=== PATIENT | female | born 1970 | race Hispanic/Latino ===

== ENCOUNTER 2023-04-03 22:02 | Emergency (ER) | payer OTHER ==
--- OUTSIDE RECORDS SUMMARY | 2023-04-03 22:05 | XMS REPORT | Continuity of Care Document ---
:1970 Author Organization [facility] t Address [address] [place] [address] [place] [address] Care Team Providers Name Role Phone DR FATOU KIMBLE Attending Clinician Unavailable DR FATOU KIMBLE Admitting Clinician Unavailable Problems This patient has no known problems. Allergies, Adverse Reactions, Alerts This patient has no known allergies or adverse reactions. Medications This patient has no known medications. Procedures This patient has no known procedures. Encounters Start End Encounter Admission Attending Care Care Encounter Source Date/Time Date/Time Type Type Clinicians Facility Department ID 2023-01-04 2023-01-04 Outpatient SFA SFA [id number] Miguel A 10:21:25 10:21:25 [id number] [facility] 2022-10-03 2022-10-03 Outpatient SFA SFA [id number] Miguel A 09:35:17 09:35:17 [id number] [facility] 2022-08-23 2022-08-23 Outpatient SFA SFA [id number] Miguel A 08:42:04 08:42:04 [id number] [facility] 2022-08-12 2022-08-12 Outpatient SFA SFA [id number] Miguel A 14:16:04 14:16:04 [id number] [facility] 2022-08-11 2022-08-11 Outpatient SFA SFA [id number] Miguel A 08:41:23 08:41:23 [id number] [place] 2017-04-30 2017-04-30 Emergency E ETHAN KIMBLE [facility] [id number] [address] [place] 10:36:00 11:27:00 [facility] Results Test Description Test Time Test Comments Results Result Comments Source HEMOGLOBIN A1c 2023-01-06 02:16:13 Test Item Value Reference Range Interpretation Comme nts HEMOGLOBIN A1c (test 7.7 % 4.2-5.6 H AMERI CAN DIABETES ASSOCIATION GUIDELINES code = 37643) FOR HGB A1C: P REDIABETES/INCREASED RISK . . . . . . . 5.7-6.4 % DIAGNOSIS OF DIABETES . . . . . . . . . >=6 .5% WITH CONFIRMATION OR APPROPRIATE SYM PTOMS NOTE: ASSAY MAY BE AFFECTED BY HEM OGLOBINOPATHIES (SICKLE CELL ANEMIA, S-C DIS EASE, OTHERS) OR ARTIFICIALLY LOWERED BY DECR EASED RED CELL SURVIVAL (HEMOLYTIC ANEM IAS, BLOOD LOSS, ETC.). CONSIDER ALTERN ATE TESTING OR LABORATORY CONSULTATION. * [facility] has important pathology staff changes e ffective 11/23/2022. New pathology staff will provide uninterrupted, excellent patie nt care and clinical consultation. S ee URL: [email or web address]. UNLESS OTHERWISE INDIC ATED, ALL TESTING PERFORMED AT [facility] [employer] [address] [place] [address] CUT OFF SAWYER: ELY GARZON M.D. CLIA NUMBER [id number] [place]. [id number] HEMOGLOBIN [id number] 02:45:45 Test Item Value Reference Range Interpretation Comments HEMOGLOBIN A1c (test 7.4 % 4.2-5.6 H AMERIC AN DIABETES code = 44059) ASSOCIATION IDELINES FOR HGB A1C: PREDIABETES/INC REASED RISK . . . . . . . 5.7 -6.4% DIAGNOSIS OF DI ABETES . . . . . . . . . >=6 .5% WITH CONFIRMATION OR APPROPRIATE SYMPTOMS NOTE: ASSAY MAY BE AFFECTED BY HEMOGLOBINOPATH IES (SICKLE CELL ANEMIA, S- C DISEASE, OTHERS) OR ANNETTE FICIALLY LOWERED BY DECR EASED RED CELL SURVIVAL ( HEMOLYTIC ANEMIAS, BLOOD LOSS, ETC.). CONSIDER ALTERN ATE TESTING OR LABORATORY C ONSULTATION. UNLESS OTHERWIS E INDICATED, ALL TESTING PER [facility], [facility]. [address] [place] [phone] LABORATORY DIRE CTOR: KAYLA KUHN M.D. CLIA NUMBER [id number] [place]. [id number] HEMOGLOBIN [id number] 04:28:38 Test Item Value Reference Range Interpretation Comments HEMOGLOBIN A1c (test 7.8 % 4.2-5.6 H AMERIC AN DIABETES code = 68211) ASSOCIATION IDELINES FOR HGB A1C: PREDIABETES/INC REASED RISK . . . . . . . 5.7 -6.4% DIAGNOSIS OF DI ABETES . . . . . . . . . >=6 .5% WITH CONFIRMATION OR APPROPRIATE SYMPTOMS NOTE: ASSAY MAY BE AFFECTED BY HEMOGLOBINOPATH IES (SICKLE CELL ANEMIA, S- C DISEASE, OTHERS) OR ANNETTE FICIALLY LOWERED BY DECR EASED RED CELL SURVIVAL ( HEMOLYTIC ANEMIAS, BLOOD LOSS, ETC.). CONSIDER ALTERN ATE TESTING OR LABORATORY C ONSULTATION. UNLESS OTHERWIS E INDICATED, ALL TESTING PER [employer] [place]. [address] [place], [place] [id number] LABORATORY DIRE CTOR: KAYLA KUHN M.D. CLIA NUMBER [id number] [place]. [id number] HEMOGLOBIN [id number] 04:29:36 Test Item Value Reference Range Interpretation Comments HEMOGLOBIN A1c (test 8.4 % 4.2-5.6 H AMERIC AN DIABETES code = 51808) ASSOCIATION IDELINES FOR HGB A1C: PREDIABETES/INC REASED RISK . . . . . . . 5.7 -6.4% DIAGNOSIS OF DI ABETES . . . . . . . . . >=6 .5% WITH CONFIRMATION OR APPROPRIATE SYMPTOMS NOTE: ASSAY MAY BE AFFECTED BY HEMOGLOBINOPATH IES (SICKLE CELL ANEMIA, S- C DISEASE, OTHERS) OR ANNETTE FICIALLY LOWERED BY DECR EASED RED CELL SURVIVAL ( HEMOLYTIC ANEMIAS, BLOOD LOSS, ETC.). CONSIDER ALTERN ATE TESTING OR LABORATORY C ONSULTATION. UNLESS OTHERWIS E INDICATED, ALL TESTING PER [employer] [place]. [address] [place] [address] LABORATORY DIRE CTOR: KAYLA KUHN M.D. CLIA NUMBER [id number] [place]. [id number] LIPID [id number] 01:58:18 Test Item Value Reference Range Interpretation Comments CHOLESTEROL (test 290 MG/DL <200 H code = 2210) TRIGLYCERIDES (test 229 MG/DL <150 H code = 2232) HDL CHOLESTEROL (test 54 MG/DL >39 code = 2220) CALC LDL CHOL (test 194 MG/DL <100 H NOTE: C ALCULATED LDL code = 2237) IS BASED ON VARGAS-TRAN METHOD WHICHINCLUDES ADJUSTABLE TRIGLYCERIDE:VL DL CHOLESTEROL RAT IO.THIS FACTOR VARIES B Y MEASURED TRIGLY CERIDE AND NON-HDLCHOL ESTEROL CONCENTRATIONS WITH INCREASED CALCU LATED LDL SEENIN HIGH ER TRIGLYCERIDE OR LOWER NON-HDL SPECIME NS. FOR MOREINFORMATION , SEE CLIENT ANNOUNCE MENT AT [email or web address] [email or web address] RATIO LDL/HDL 3.59 RATIO <3.22 H (test code = 2238) COMPREHENSIVE METABOLIC [id number] 01:58:18 Test Item Value Reference Range Interpretation Comments GLUCOSE (test code = 297 MG/DL 70-99 H 2216) BUN (test code = 12 MG/DL 6-20 2207) CREATININE (test 0.51 MG/DL 0.60-1.30 L code = 221) eGFR (2020 CKD-EPI) 114 >60 (test code = 32894) ML/MIN/1.73 CALC BUN/CREAT (test 24 RATIO 6-28 code = 2235) SODIUM (test code = 141 MEQ/L 159-999 5190) POTASSIUM (test code 4.2 MEQ/L 3.5-5.4 = 2227) CHLORIDE (test code 103 MEQ/L 95-107 = 2214) CARBON DIOXIDE (test 24 MEQ/L 19-31 code = 2206) CALCIUM (test code = 9.8 MG/DL 8.5-10.5 2208) PROTEIN, TOTAL (test 6.9 G/DL 6.1-8.3 code = 222) ALBUMIN (test code = 4.7 G/DL 3.5-5.2 2200) CALC GLOBULIN (test 2.2 G/DL 1.9-3.7 code = 2240) CALC A/G RATIO (test 2.1 RATIO 1.0-2.6 code = 2234) BILIRUBIN, TOTAL 1.2 MG/DL See_Comment [Automated message] (test code = 2207) The syste m which generated this result transmitted ref erence range: <=1.2. T he reference range was not used to int erpret this result as normal/abnormal . ALKALINE PHOSPHATASE 100 U/L 40-128 (test code = 2203) AST (test code = 15 U/L 9-40 2218) ALT (test code = 18 U/L 5-40 UNLESS OTH ERWISE 2219) INDICATED, ALL TESTING PERFORM ED [facility], [facility]. [address] [place] [address] [facility] DIRECTOR: KAYLA KUHN M.D. CLIA NUMBER [id number] [place] O. [id number] HEMOGLOBIN [id number] 04:29:13 Test Item Value Reference Range Interpretation Comments HEMOGLOBIN A1c (test 9.4 % 4.2-5.6 H AMERIC AN DIABETES code = 64110) ASSOCIATION IDELINES FOR HGB A1C: PREDIABETES/INC REASED RISK . . . . . . . 5.7 -6.4% DIAGNOSIS OF DI ABETES . . . . . . . . . >=6 .5% WITH CONFIRMATION OR APPROPRIATE SYMPTOMS NOTE: ASSAY MAY BE AFFECTED BY HEMOGLOBINOPATH IES (SICKLE CELL ANEMIA, S- C DISEASE, OTHERS) OR ANNETTE FICIALLY LOWERED BY DECR EASED RED CELL SURVIVAL ( HEMOLYTIC ANEMIAS, BLOOD LOSS, ETC.). CONSIDER ALTERN ATE TESTING OR LABORATORY C ONSULTATION.
[2023-04-03 23:25] LABS: Absolute Lymphocytes (CBC) 0.7 K/uL (0.7-4.9); Hematocrit 50.7 % (36.0-45.0); Lymphocytes % 7.2 % (15.3-44.8); MCV 88.5 fL (80-100); MPV 9.4 fL (7.6-11.3); RBC Red Blood Cell Count 5.72 M/uL (3.86-4.86)
[2023-04-03] MEDS ORDERED: FAMOTIDINE 20 MG/2 ML VIAL IV ONE (23:35)
[2023-04-03] MEDS ORDERED: NA CHLORIDE 0.9% 1,000 ML ONE (23:35)
[2023-04-03] MEDS ORDERED: ONDANSETRON 4 MG/2 ML VIAL ONE (23:35)
[2023-04-03 23:44] LABS: Albumin 3.9 g/dL (3.4-5.0); Bilirubin Direct 0.3 mg/dL (0-0.2); Bilirubin Indirect, Calculated 1.5 mg/dL (0.2-0.8); Bilirubin Total 1.8 mg/dL (0.2-1.0); Magnesium 1.9 mg/dL (1.6-2.4); Potassium 3.5 mEq/L (3.5-5.1); Protein, Total 7.7 g/dL (6.4-8.2); Troponin High Sensitivity 12.4 pg/mL (<58.9)
[2023-04-04 01:16] LABS: Blood Morphology Comment NOT SEEN (NOT SEEN); Platelet Estimate ADEQ
[2023-04-04 02:47] LABS: Urine Bacteria None Seen /HPF (<20); Urine RBC None Seen /HPF (None Seen)
--- NOTE | 2023-04-04 03:06 | EDPHYS ---
Physician Documentation [facility] Name: Radha Pablo Age: 52 yrs Sex: Female : 1970 Arrival Date: 04/03/2023 Time: 22:02 Bed 18 Private MD: ED Physician Uche Seth HPI: 04/03 22:45 This 52 yrs old Female presents to ER via Ambulatory with complaints of High cp Blood Sugar, Epigastric Pain. 22:45 The patient or guardian reports hyperglycemia. cp 22:45 Associated signs and symptoms: Pertinent positives: nausea, vomiting, epigastric pain cp since Monday, Pertinent negatives: chest pain, fever, diarrhea. Current symptoms: In the emergency department the patient's symptoms are unchanged from the initial presentation, despite home interventions. Historical: - Allergies: 22:27 No Known Allergies; cm10 - PMHx: 22:27 Diabetes mellitus; Hypertensive disorder; cm10 22:27 high cholesterol; cm10 - Immunization history:: Adult Immunizations unknown. - Social history:: Smoking status: Patient denies any tobacco usage or history of. ROS: 22:50 Eyes: Negative for injury, pain, redness, and discharge. cp 22:50 Constitutional: Positive for poor PO intake, Negative for body aches, chills, fever. 22:50 ENT: Negative for drainage from ear(s), ear pain, sore throat, difficulty swallowing, cp difficulty handling secretions. 22:50 Cardiovascular: Negative for chest pain, edema. 22:50 Respiratory: Negative for cough, shortness of breath, wheezing. 22:50 Abdomen/GI: Positive for abdominal pain, nausea and vomiting, anorexia, Negative for diarrhea, constipation, hematemesis, black/tarry stool, rectal bleeding. 22:50 Back: Negative for radiated pain. 22:50 Neuro: Negative for altered mental status, dizziness, headache, weakness. 22:50 All other systems are negative. Exam: 22:45 ECG was reviewed by the Attending Physician. cp 22:55 Constitutional: The patient appears in no acute distress, alert, awake, cp non-diaphoretic, non-toxic, well developed, well nourished, uncomfortable. 22:55 Head/Face: Normocephalic, atraumatic. cp 22:55 Eyes: Periorbital structures: appear normal, Conjunctiva: normal, no exudate, no injection, Sclera: no appreciated abnormality, Lids and lashes: appear normal, bilaterally. 22:55 ENT: External ear(s): are unremarkable, Nose: is normal, Mouth: Lips: moist, Oral mucosa: pink and intact, moist, Posterior pharynx: is normal, airway is patent, no erythema, no exudate. 22:55 Neck: ROM/movement: is normal, is supple, without pain, no range of motions limitations, no meningismus. 22:55 Chest/axilla: Inspection: normal. 22:55 Cardiovascular: Rate: tachycardic, Rhythm: regular. 22:55 Respiratory: the patient does not display signs of respiratory distress, Respirations: normal, no use of accessory muscles, no retractions, labored breathing, is not present, Breath sounds: are clear throughout, no decreased breath sounds, no stridor, no wheezing. 22:55 Abdomen/GI: Inspection: abdomen appears normal, Bowel sounds: active, all quadrants, Palpation: soft, in all quadrants, moderate abdominal tenderness, in the epigastric area and left upper quadrant, rebound tenderness, is not appreciated, involuntary guarding, is not appreciated. 22:55 Back: CVA tenderness, is absent. 22:55 Neuro: Orientation: to person, place \T\ time. Mentation: is normal, Motor: moves all fours, strength is normal, Sensation: is normal. Vital Signs: 22:25 BP 136 / 102; Pulse 105; Resp 16; Temp 98.6(TE); Pulse Ox 97% on R/A; Weight 78.93 kg; cm10 Height 5 ft. 1 in. ; Pain 8/10; 23:29 BP 123 / 79; Pulse 87; Resp 21; Pulse Ox 97% on R/A; vc1 07/11 00:36 BP 136 / 73; Pulse 86; Resp 16; Pulse Ox 98% on R/A; pf1 01:29 BP 137 / 79; Pulse 90; Resp 16; Pulse Ox 97% on R/A; Pain 0/10; pf1 02:30 BP 142 / 82; Pulse 89; Resp 16; Pulse Ox 97% ; Pain 2/10; pf1 03:30 BP 131 / 82; Pulse 85; Resp 16; Temp 98.2; Pulse Ox 98% on R/A; Pain 4/; pf1 04/03 22:25 Body Mass Index 32.88 (78.93 kg, 154.94 cm) cm10 04/03 22:25 Pain Scale: Adult cm10 01:29 Pain Scale: Adult pf1 02:30 Pain Scale: Adult pf1 03:30 Pain Scale: Adult pf1 MDM: 04/03 22:39 Patient medically screened. cp 23:00 Differential diagnosis: DKA, hyperglycemia, cholelithiasis, pancreatitis, acute ND, cp choledocholithiasis, cholecystitis. 04/04 03:00 Data reviewed: vital signs, nurses notes. cp 03:00 Consideration of Admission/Observation Patient was admitted/placed on observation. I cp considered the following discharge prescriptions or medication management in the emergency department Medications were administered in the Emergency Department. See MAR. Care significantly affected by the following chronic conditions: Diabetes, Hypertension. Counseling: I had a detailed discussion with the patient and/or guardian regarding: the historical points, exam findings, and any diagnostic results supporting the discharge/admit diagnosis, lab results, radiology results, the need for outpatient follow up, a general surgeon. Response to treatment: the patient's symptoms have markedly improved after treatment, and as a result, I will discharge patient. Special discussion: Based on the patient's Hx, exam, and Dx evaluation, there is no indication for emergent surgery or inpatient Tx. It is understood by the patient/guardian that if the Sx's persist or worsen they need to return immediately for re-evaluation. 04/03 22:41 Order name: Glucose, Ancillary Testing; Complete Time: 22:46 EDMS 04/03 22:48 Order name: Basic Metabolic Panel; Complete Time: 01:45 cp 04/04 01:45 Interpretation: Normal except: GLUC 197. cp 04/03 22:48 Order name: CBC with Diff; Complete Time: 01:45 cp 04/04 01:45 Interpretation: Normal except: RBC 5.72; HGB 17.0; HCT 50.7; RONALD% 85.3; LYM% 7.2. cp 04/03 22:48 Order name: LFT's; Complete Time: 01:45 cp 04/04 01:46 Interpretation: Normal except: BILIT 1.8; BILID 0.3; IBILI, CALC 1.5; GLOB 3.8; A/G 1.0.cp 04/03 22:48 Order name: Magnesium; Complete Time: 01:45 cp 04/03 22:48 Order name: Troponin HS; Complete Time: 01:45 cp 04/03 22:48 Order name: Lipase; Complete Time: 01:45 cp 04/03 23:31 Order name: Manual Differential; Complete Time: 01:45 EDMS 04/04 01:46 Interpretation: Normal except: BANDS [F] 15; LYM 7; EOS 4. 04/04 01:51 Order name: Urine Microscopic Only; Complete Time: 02:58 cp 04/04 02:58 Interpretation: Reviewed. 04/03 22:48 Order name: XRAY Chest (1 view) 04/03 22:48 Order name: US Abdomen Limited 04/03 23:39 Order name: CT Abd/Pelvis - IV Contrast Only 04/03 22:48 Order name: EKG; Complete Time: 22:49 cp 04/03 22:48 Order name: Cardiac monitoring; Complete Time: 23:01 04/03 22:48 Order name: EKG - Nurse/Tech; Complete Time: 22:55 cp 04/03 22:48 Order name: IV Saline Lock; Complete Time: 23:14 cp 04/03 22:48 Order name: Labs collected and sent; Complete Time: 23:14 04/03 22:48 Order name: O2 Per Protocol; Complete Time: 23:14 cp 04/03 22:48 Order name: O2 Sat Monitoring; Complete Time: 23:14 04/04 01:51 Order name: PO challenge cp EC/10 22:45 Rate is 99 beats/min. Rhythm is regular. MN interval is normal. QRS interval is normal. cp QT interval is normal. T waves are Inverted in lead aVR. Interpreted by me. Reviewed by me. Administered Medications: 23:30 Drug: Ondansetron IVP 4 mg Route: IVP; Site: right antecubital; [facility] 04/04 00:30 Follow up: Response: No adverse reaction; Marked relief of symptoms [facility] 04/03 23:30 Drug: Famotidine IVP 20 mg Route: IVP; Site: right antecubital; 1 04/04 00:35 Follow up: Response: No adverse reaction; Marked relief of symptoms [facility] 04/03 23:30 Drug: NS 0.9% IV 1000 ml Route: IV; Rate: 1 bolus; Site: right antecubital; pf1 04/04 00:35 Follow up: Response: No adverse reaction; Marked relief of symptoms; IV Status: pf1 Completed infusion; IV Intake: 1000ml 03:20 Drug: Rocephin IV 1 grams Route: IV; Rate: calculated rate; Site: right antecubital; pf1 03:25 Follow up: Response: No adverse reaction; Marked relief of symptoms; IV Status: pf1 Completed infusion; IV Intake: 10ml 03:20 Drug: Ondansetron IVP 4 mg Route: IVP; Site: right antecubital; pf1 04:20 Follow up: Response: No adverse reaction; Marked relief of symptoms; Pain is decreased; pf1 RASS: Alert and Calm (0) 03:20 Drug: morphine IVP or IV 4 mg Route: IVP; Infused Over: 4 mins; Site: right antecubital;pf1 04:20 Follow up: Response: No adverse reaction; Marked relief of symptoms; Pain is decreased; pf1 RASS: Alert and Calm (0) Disposition: 04/05 02:13 Co-signature as Attending Physician, Uche Seth MD I agree with the assessment sp4 and plan of care. I reviewed the patient's care provided by the Advanced Practice Provider and agree with the diagnosis and treatment plan. Disposition Summary: 04/04/23 03:05 Discharge Ordered Location: Home cp Problem: new cp Symptoms: have improved cp Condition: Stable cp Diagnosis - Other cholelithiasis without obstruction cp - Other specified diabetes mellitus with hyperglycemia cp Followup: cp - With: Bob Steele MD - When: 1 - 2 days - Reason: cholelithiasis Discharge Instructions: - Discharge Summary Sheet cp - Hyperglycemia cp - Cholelithiasis cp - Blood Glucose Monitoring, Adult cp Forms: - Medication Reconciliation Form cp - Thank You Letter cp - Antibiotic Education cp - Prescription Opioid Use cp - Patient Portal Instructions.htm cp Prescriptions: - Pepcid 20 mg Oral Tablet - take 1 tablet by ORAL route every 12 hours for 10 days; 20 tablet; Refills: 0, cp Product Selection Permitted - Zofran 4 mg Oral Tablet - take 1 tablet by ORAL route every 12 hours As needed; 20 tablet; Refills: 0, cp Product Selection Permitted - Cipro 500 mg Oral Tablet - take 1 tablet by ORAL route every 12 hours for 7 days; 14 tablet; Refills: 0, cp Product Selection Permitted - dicyclomine 20 mg Oral Tablet - take 1 tablet by ORAL route 4 times per day; 30 tablet; Refills: 0, Product cp Selection Permitted Signatures: Dispatcher [employer] EDMS Enrico Jeffers PA PA cp Finley, Pamala, RN RN pf1 Uche Seth MD MD sp4 Suzan Steele RN RN cm10 Corrections: (The following items were deleted from the chart) 04/04 22:41 21:55 Constitutional: Positive for poor PO intake, Negative for body aches, chills, cp fever, cp 22:41 21:55 Eyes: Negative for injury, pain, redness, and discharge, cp cp
--- NOTE | 2023-04-04 03:06 | ER ---
Nurse's Notes [facility] Name: Radha Pablo Age: 52 yrs Sex: Female : 1970 Arrival Date: 04/03/2023 Time: 22:02 Bed 18 Private MD: Diagnosis: Other cholelithiasis without obstruction;Other specified diabetes mellitus with hyperglycemia Presentation: 04/03 22:25 Chief complaint: Patient states: epigastric pain, high blood and vomiting onset Monday. cm10 Pt also states that her blood sugar has been elevated. Coronavirus screen: Vaccine status: Patient reports being unvaccinated. Ebola Screen: Patient denies travel to an Ebola-affected area in the 21 days before illness onset. No symptoms or risks identified at this time. Initial Sepsis Screen: Does the patient meet any 2 criteria? No. Patient's initial sepsis screen is negative. Does the patient have a suspected source of infection? No. Patient's initial sepsis screen is negative. Risk Assessment: Do you want to hurt yourself or someone else? Patient reports no desire to harm self or others. Onset of symptoms was April 02, 2023. 22:25 Method Of Arrival: Ambulatory cm10 22:25 Acuity: BARBARA 3 cm10 Historical: - Allergies: 22:27 No Known Allergies; cm10 - PMHx: 22:27 Diabetes mellitus; Hypertensive disorder; cm10 22:27 high cholesterol; cm10 - Immunization history:: Adult Immunizations unknown. - Social history:: Smoking status: Patient denies any tobacco usage or history of. Screenin:30 [facility] ED Fall Risk Assessment (Adult) History of falling in the last 3 months, pf1 including since admission No falls in past 3 months (0 pts) Confusion or Disorientation No (0 pts) Intoxicated or Sedated No (0 pts) Impaired Gait No (0 pts) Mobility Assist Device Used No (0 pt) Altered Elimination No (0 pt) Score/Fall Risk Level 0 - 2 = Low Risk Oriented to surroundings, Maintained a safe environment, Educated pt \T\ family on fall prevention, incl call for assistance when getting out of bed, Assessed \T\ reinforced patient's understanding of fall precautions, Provided non-skid footwear, Hourly rounding (assess needs \T\ fall precautionary measures) done, Used ambulatory aids as needed (educated on \T\ assisted with), Used gait belt as appropriate. 23:28 Abuse screen: Denies threats or abuse. Nutritional screening: No deficits noted. vc1 Tuberculosis screening: No symptoms or risk factors identified. Assessment: 22:30 General: Appears in no apparent distress. uncomfortable, well groomed, well developed, pf1 Behavior is calm, cooperative, appropriate for age, quiet, Patient C/O elevated BS today. 22:30 Pain: Complains of pain in epigastric pain. Neuro: No deficits noted. Level of pf1 Consciousness is awake, alert, obeys commands, Oriented to person, place, time, situation. Cardiovascular: No deficits noted. Capillary refill < 3 seconds Patient's skin is warm and dry. Respiratory: No deficits noted. Airway is patent Respiratory effort is even, unlabored, Respiratory pattern is regular, symmetrical, Breath sounds are clear bilaterally. GI: Abdomen is round non-distended, Reports epigastric pain, vomiting. : No deficits noted. No signs and/or symptoms were reported regarding the genitourinary system. EENT: No deficits noted. No signs and/or symptoms were reported regarding the EENT system. Derm: No deficits noted. No signs and/or symptoms reported regarding the dermatologic system. Musculoskeletal: No deficits noted. No signs and/or symptoms reported regarding the musculoskeletal system. 23:30 Reassessment: Patient appears in no apparent distress at this time. Patient and/or pf1 family updated on plan of care and expected duration. Pain level reassessed. Patient is alert, oriented x 3, equal unlabored respirations, skin warm/dry/pink. Patient states symptoms have improved. 04/04 00:34 Reassessment: Patient appears in no apparent distress at this time. Patient and/or pf1 family updated on plan of care and expected duration. Pain level reassessed. Patient is alert, oriented x 3, equal unlabored respirations, skin warm/dry/pink. Patient states feeling better. Patient states symptoms have improved. 01:27 Reassessment: Patient appears in no apparent distress at this time. Patient and/or pf1 family updated on plan of care and expected duration. Pain level reassessed. Patient is alert, oriented x 3, equal unlabored respirations, skin warm/dry/pink. Patient states feeling better. Patient states symptoms have improved. 02:49 Reassessment: Patient appears in no apparent distress at this time. Patient and/or pf1 family updated on plan of care and expected duration. Pain level reassessed. Patient is alert, oriented x 3, equal unlabored respirations, skin warm/dry/pink. Patient states feeling better. Patient states symptoms have improved. 03:30 Reassessment: Patient appears in no apparent distress at this time. Patient and/or pf1 family updated on plan of care and expected duration. Pain level reassessed. Patient is alert, oriented x 3, equal unlabored respirations, skin warm/dry/pink. Patient states feeling better. Patient states symptoms have improved. Vital Signs: 04/03 22:25 BP 136 / 102; Pulse 105; Resp 16; Temp 98.6(TE); Pulse Ox 97% on R/A; Weight 78.93 kg; cm10 Height 5 ft. 1 in. ; Pain 8/; 23:29 BP 123 / 79; Pulse 87; Resp 21; Pulse Ox 97% on R/A; vc1 04/04 00:36 BP 136 / 73; Pulse 86; Resp 16; Pulse Ox 98% on R/A; pf1 01:29 BP 137 / 79; Pulse 90; Resp 16; Pulse Ox 97% on R/A; Pain 0/10; pf1 02:30 BP 142 / 82; Pulse 89; Resp 16; Pulse Ox 97% ; Pain 2/10; pf1 03:30 BP 131 / 82; Pulse 85; Resp 16; Temp 98.2; Pulse Ox 98% on R/A; Pain 4/10; pf1 04/03 22:25 Body Mass Index 32.88 (78.93 kg, 154.94 cm) cm10 04/03 22:25 Pain Scale: Adult cm10 01:29 Pain Scale: Adult pf1 02:30 Pain Scale: Adult pf1 03:30 Pain Scale: Adult pf1 ED Course: 04/03 22:03 Patient arrived in ED. am2 22:27 Triage completed. cm10 22:27 Arm band placed on Patient placed in waiting room. cm10 22:29 Enrico Jeffers PA is PHCP. cp 22:29 Uche Seth MD is Attending Physician. cp 22:55 Lubna Mancini, CORNELIUS is Primary Nurse. pf1 23:13 Inserted saline lock: 22 gauge in right antecubital area, using aseptic technique. oe Blood collected. 23:14 Basic Metabolic Panel Sent. oe 23:14 CBC with Diff Sent. oe 23:14 LFT's Sent. oe 23:14 Magnesium Sent. oe 23:14 Troponin HS Sent. oe 23:26 XRAY Chest (1 view) In Process Unspecified. EDMS 23:28 Patient has correct armband on for positive identification. Bed in low position. Call vc1 light in reach. Client placed on continuous cardiac and pulse oximetry monitoring. NIBP monitoring applied. 23:31 US Abdomen Limited In Process Unspecified. EDMS 07 00:35 CT Abd/Pelvis - IV Contrast Only In Process Unspecified. EDMS 02:17 Urine Microscopic Only Sent. ah1 03:04 Bob Steele MD is Referral Physician. cp 04:15 Provided Education on: medication administration and prescriptions. pf1 04:21 No provider procedures requiring assistance completed. IV discontinued, intact, pf1 bleeding controlled, No redness/swelling at site. Pressure dressing applied. Administered Medications: 04/03 23:30 Drug: Ondansetron IVP 4 mg Route: IVP; Site: right antecubital; pf1 04/04 00:30 Follow up: Response: No adverse reaction; Marked relief of symptoms pf1 04/03 23:30 Drug: Famotidine IVP 20 mg Route: IVP; Site: right antecubital; pf1 04/04 00:35 Follow up: Response: No adverse reaction; Marked relief of symptoms pf1 04/03 23:30 Drug: NS 0.9% IV 1000 ml Route: IV; Rate: 1 bolus; Site: right antecubital; pf1 04/04 00:35 Follow up: Response: No adverse reaction; Marked relief of symptoms; IV Status: pf1 Completed infusion; IV Intake: 1000ml 03:20 Drug: Rocephin IV 1 grams Route: IV; Rate: calculated rate; Site: right antecubital; pf1 03:25 Follow up: Response: No adverse reaction; Marked relief of symptoms; IV Status: pf1 Completed infusion; IV Intake: 10ml 03:20 Drug: Ondansetron IVP 4 mg Route: IVP; Site: right antecubital; pf1 04:20 Follow up: Response: No adverse reaction; Marked relief of symptoms; Pain is decreased; pf1 RASS: Alert and Calm (0) 03:20 Drug: morphine IVP or IV 4 mg Route: IVP; Infused Over: 4 mins; Site: right antecubital;pf1 04:20 Follow up: Response: No adverse reaction; Marked relief of symptoms; Pain is decreased; pf1 RASS: Alert and Calm (0) Medication: 04/03 23:29 VIS not applicable for this client. vc1 Intake: 04/04 00:35 IV: 1000ml; Total: 1000ml. pf1 03:25 IV: 10ml; Total: 1010ml. pf1 Outcome: 03:05 Discharge ordered by MD. cp 04:18 Discharged to home via wheelchair. pf1 04:18 Condition: improved 04:18 Discharge instructions given to patient, family, Language Line used with [employer] ID [id number] Instructed on discharge instructions, follow up and referral plans. Demonstrated understanding of instructions, follow-up care, medications, Prescriptions given X 4. 04:21 Patient left the ED. pf1 Signatures: Dispatcher [employer] EDMS Enrico Jeffers PA PA cp Espinosa, Orlando oe Moreno, Amanda am2 Juana Simmons, RN RN vc1 Lubna Mancini RN RN pf1 Dorita Herrera ah1 Suzan Steele, RN RN cm10
[2023-04-04] MEDS ORDERED: CEFTRIAXONE 1000 MG/VIAL ONE (03:37)
[2023-04-04] MEDS ORDERED: MORPHINE 4 MG/ML SYR ONE (03:37)
[2023-04-04] MEDS ORDERED: ONDANSETRON 4 MG/2 ML VIAL ONE (03:37)
[2023-04-04 04:26] VITALS: TEMP 98.6
[2023-04-04 04:31] VITALS: O2SAT 97
[2023-04-04 04:33] VITALS: BP 142/82
--- NOTE | 2023-04-04 15:46 | RAD REPORT ---
EXAM DESCRIPTION: XR Chest, 1 View CLINICAL HISTORY: The patient is 52 years old and is Female; epigastric pain TECHNIQUE: Frontal view of the chest. COMPARISON: No relevant prior studies available. FINDINGS: LUNGS: Unremarkable. No consolidation. PLEURAL SPACE: Unremarkable. No pneumothorax. HEART: Unremarkable. No cardiomegaly. MEDIASTINUM: Unremarkable. BONES/JOINTS: Unremarkable. UPPER ABDOMEN: Unremarkable as visualized. IMPRESSION: No acute cardiopulmonary process. Electronically signed by: Sonia Salmeron MD 04/04/2023 12:00 AM CDT Due to temporary technical issues with the PACS/Fluency reporting system, reports are being signed by the in house radiologists without review as a courtesy to insure prompt reporting. The interpreting radiologist is fully responsible for the content of the report.
--- NOTE | 2023-04-04 16:01 | RAD REPORT ---
EXAM DESCRIPTION: US Abdomen Limited, gallbladder fossa CLINICAL HISTORY: The patient is 52 years old and is Female; EPIGASTRIC PAIN [facility] MAIN TECHNIQUE: Real-time ultrasound of the right upper quadrant with image documentation. COMPARISON: No relevant prior studies available. FINDINGS: GALLBLADDER: Cholelithiasis with gallbladder sludge demonstrated. No gallbladder wall thickening or pericholecystic free fluid or edema. COMMON BILE DUCT: Unremarkable as visualized. No stones. No dilation. Common bile duct measures 0.3 cm in diameter. IMPRESSION: Cholelithiasis with gallbladder sludge demonstrated. No sonographic findings to sugges t acute cholecystitis. If there is high clinical suspicion for acute cholecystitis, or to evaluate fo r chronic cholecystitis or biliary dyskinesia, further evaluation by HIDA scan could be performed. Electronically signed by: Jimmy Haji MD 04/04/2023 12:11 AM CDT Due to temporary technical issues with the PACS/Fluency reporting system, reports are being signed by the in house radiologists without review as a courtesy to insure prompt reporting. The interpreting radiologist is fully responsible for the content of the report.
--- NOTE | 2023-04-04 18:35 | RAD REPORT ---
EXAM DESCRIPTION: CT Abdomen and Pelvis With Intravenous Contrast CLINICAL HISTORY: The patient is 52 years old and is Female; ABD PAIN TECHNIQUE: Axial computed tomography images of the abdomen and pelvis with intravenous contrast. S agittal and coronal reformatted images were created and reviewed. This CT exam was performed using one or more of the following dose reduction techniques: automated exposure control, adjustment of t he mA and/or kV according to patient size, and/or use of iterative reconstruction technique. COMPARISON: No relevant prior studies available. FINDINGS: Lung bases: 2 mm calcification near the left base of the bladder which appears to be out side of the ureter. Mediastinum: Small fat-containing hiatal hernia. ABDOMEN: Liver: Nonspecific 1 cm hypoattenuating lesion in the left liver. Gallbladder and bile ducts: Unremarkable. No calcified stones. No ductal dilation. Pancreas: Unremarkable. No mass. No ductal dilation. Spleen: Unremarkable. No splenomegaly. Adrenals: Unremarkable. No mass. Kidneys and ureters: See above. Stomach and bowel: Mild mucosal thickening involving the small bowel in the left upper quadrant. Fluid in the colon which can be seen with diarrhea. No obstruction. PELVIS: Appendix: The appendix is normal. Bladder: See above. Reproductive: Unremarkable as visualized. ABDOMEN and PELVIS: Intraperitoneal space: Unremarkable. No free air. No significant fluid collection. Bones/joints: No acute fracture. No dislocation. Soft tissues: Unremarkable. Vasculature: Unremarkable. No abdominal aortic aneurysm. Lymph nodes: Unremarkable. No enlarged lymph nodes. IMPRESSION: 1. Mild mucosal thickening involving the small bowel in the left upper quadrant. Cor relate with any concern for enteritis. 2. Additional non-emergent findings as above. Electronically signed by: Reynaldo Peña MD 04/04/2023 1:02 AM CDT Due to temporary technical issues with the PACS/Fluency reporting system, reports are being signed by the in house radiologists without review as a courtesy to insure prompt reporting. The interpreting radiologist is fully responsible for the content of the report.
--- NOTE | 2023-04-04 20:22 | EKG ---
Test Date: 2023-04-03 Test Time: 22:38:09 Curtain Supervisor: DEMETRI MEASUREMENT RESULTS: Intervals: Rate: 99 IN: 154 QRSD: 76 QT: 346 QTc: 444 [place]: P: 60 IN: 154 QRS: 57 T: 34 INTERPRETIVE STATEMENTS: Normal sinus rhythm Septal infarct, age undetermined Abnormal ECG No previous ECG available for comparison Electronically Signed On 04-04-23 20:21:28 CDT by Jersey Tam
== END 2023-04-04 04:21 | disposition home or self-care (01) ==
LOC: ER 22:02
DX: K80.80 Other cholelithiasis without obstruction (principal); E13.65 Other specified diabetes mellitus with hyperglycemia; I10 Essential (primary) hypertension
CPT/HCPCS: 96361; 93005; 85025; 80048; 36415; 83735; 82947; 80076; 81015; 84484; 83690; 74177; 71045; 76705; 96375; 96374; 99284; Q9967; J2405 ×2; J7030; J0696

== ENCOUNTER 2023-04-07 11:34 | Day surgery (SDC) | payer OTHER ==
[2023-04-07] MEDS ORDERED: CEFOXITIN SODIUM 1 GM/VIAL ONE (12:23)
[2023-04-07] MEDS ORDERED: NA CHLORIDE 0.9% 1,000 ML ONE (12:23)
[2023-04-07] MEDS ORDERED: FENTANYL CITR 100 MCG/2 ML ONE ×2 (13:23→14:41)
[2023-04-07] MEDS ORDERED: MIDAZOLAM HCL 2 MG/2 ML INJ ONE ×2 (13:24→14:41)
[2023-04-07] MEDS ORDERED: propofoL 200 MG/20 ML VIAL IV ONE ×2 (13:24→14:41)
[2023-04-07] MEDS ORDERED: ONDANSETRON 4 MG/2 ML VIAL ONE ×2 (13:27→14:57)
[2023-04-07] MEDS ORDERED: LIDOCAINE 2% MPF 5 ML VIAL ONE ×2 (13:27→14:41)
[2023-04-07] MEDS ORDERED: ROCURONIUM 50 MG/5 ML VIAL IV ONE ×2 (13:28→14:42)
[2023-04-07] MEDS ORDERED: NEOSTIGMINE 1 MG/ML -10 ML VIAL ONE (13:33)
[2023-04-07] MEDS ORDERED: GLYCOPYRROLATE 0.2 MG/ML SYR ONE ×2 (13:33→15:10)
[2023-04-07 14:21] LABS: Albumin 3.5 g/dL (3.4-5.0); Bilirubin Direct 0.2 mg/dL (0-0.2); Bilirubin Indirect, Calculated 0.9 mg/dL (0.2-0.8); Bilirubin Total 1.1 mg/dL (0.2-1.0); Protein, Total 6.8 g/dL (6.4-8.2)
[2023-04-07] MEDS ORDERED: SUCCINYLCHOLINE 20 MG/ML (10 ML) IV ONE (14:35)
[2023-04-07] MEDS ORDERED: dexAMETHasone 4 MG/ML VIAL ONE (15:05)
[2023-04-07] MEDS ORDERED: KETAMINE HCL IN 0.9 % NACL 50 MG/5 ML SYRINGE IV ONE (15:05)
--- NOTE | 2023-04-07 15:43 | P.BOP ---
Preoperative diagnosis: acute cholecystitis, symptomatic cholelithiasis Postoperative diagnosis: same Primary procedure: Laparoscopic cholecystectomy Estimated blood loss: <10cc Specimen: gb Findings: as above Anesthesia: General Complications: None Transferred to: Recovery Room Condition: Good
[2023-04-07] MEDS: HYDROMORPHONE HCL 1 MG/ML INJ ONE ×2 (15:50→15:55)
[2023-04-07] MEDS ORDERED: KETOROLAC 30 MG/ML INJ ONE (15:51)
[2023-04-07] MEDS ORDERED: METOCLOPRAMIDE 10 MG/2mL INJ ONE (15:51)
[2023-04-07] MEDS ORDERED: HYDROCODONE/APAP 5/325 MG TAB ONE (16:54)
[2023-04-07 18:28] VITALS: BP 101/73; O2SAT 98
[2023-04-07 18:30] VITALS: TEMP 97
--- NOTE | 2023-04-08 02:41 | OP ---
Date of Procedure: 04/07/2023 Surgeon: Bob Steele MD Preoperative Diagnosis: Acute cholecystitis, symptomatic cholelithiasis, right upper quadrant abdomi nal pain. Postoperative Diagnoses: Acute cholecystitis, symptomatic cholelithiasis, right upper quadrant abdom inal pain. Procedure: Laparoscopic cholecystectomy. Specimen: Gallbladder. Finding: Acute cholecystitis. Anesthesia: General plus local. Complications: None. Indication: This is a case of a 52-year-old patient comes to us with abdominal pain, come to the ER, sent to my office still abdominal pain. So in the last 48 hours, we were able to book her in surger y for a laparoscopic possible open cholecystectomy with benefits, alternatives, and risks including, but not limited to infection, bleeding, damage to adjacent structures, anesthesia complication, nav docholithiasis, bile leak, pancreatitis, [place], and . She also understands this may not relieve an y symptoms. She might need more than one surgical intervention. She understood and signed a consent . Procedure In Detail: The patient was brought to the operating room, placed in supine position. Anes thesia was done without complication. Abdominal area was prepped and draped in sterile fashion. Mar david 0.5% was injected for local anesthetic followed by sharp incision of the skin in the infraumbil ical region. Incision was carried down to fascia, which was opened under direct vision. Peritoneum was encountered, opened under direct vision. Vicryl #1 placed inside the fascia. Ricci trocar was carefully introduced. Pneumoperitoneum was obtained. I placed 3 more trocars, 5 mm each 1 of them, 1 in the epigastric area, 2 in the right upper quadrant. Using same technique, which consisted of lo ashley anesthetic with sharp incision of the skin, introduction of the trocars under direct vision. Thi s allowed me to put a grasper in the fundus of the gallbladder, another grasper in the infundibulum, retracting the gallbladder in the inferolateral fashion exposing the triangle of Calot, obtaining cri tical view. The cystic duct and cystic artery fully isolated, freed circumferentially and a connecti on between those and the gallbladder were clearly identified. I proceeded to ligate those by using a t least 3 clips proximal, 1 clip distal, ligation in middle. Same was done with the cystic artery. No bile leak, no bleeding. The gallbladder was removed from the liver using Bovie cauterizer and rem ekaterina from the abdominal cavity using EndoCatch through the umbilical incision. The area was inspecte d once again. No bile leak, no bleeding. At that moment, I proceeded to remove the trocars under di rect vision, deflated pneumoperitoneum. Closed the fascia with #1 Vicryl. Irrigated subcutaneous ti ssue, closed that with 3-0 chromic and skin with jonathan. Sponge count, instrument counts correct. The patient tolerated the procedure well. The patient was sent to recovery in stable condition. STEFANI/GEOVANNY Voice ID: [id number] Report ID: [id number]
--- NOTE | 2023-04-08 02:44 | DS ---
Date of Discharge: 04/07/2023 Diagnosis: Acute cholecystitis, symptomatic cholelithiasis. Procedure: Laparoscopic cholecystectomy. Condition: Stable. Disposition: Home. Activity: As tolerated. No heavy lifting. Plan: Follow up in my office in 1 week. Call for appointment at [phone]. Keep the area dry for 48 hours, then may shower, then put triple antibiotics over the jonathan and covered with Band-Aids. Th e patient tolerated the procedure well. Medication: Will be called from the office. STEFANI/GEOVANNY Voice ID: [id number] Report ID: [id number]
--- NOTE | 2023-04-10 11:52 | EKG ---
Test Date: 2023-04-07 Test Time: 11:46:45 Pediatrician Active Practice: JESSICA MEASUREMENT RESULTS: Intervals: Rate: 65 [place]: 138 QRSD: 84 QT: 426 QTc: 443 [place]: P: 41 WV: 138 QRS: 15 T: 17 INTERPRETIVE STATEMENTS: Sinus rhythm with fusion complexes Otherwise normal ECG Compared to ECG 04/03/2023 22:38:09 Fusion complex(es) now present Myocardial infarct finding no longer present Electronically Signed On 04-10-23 11:46:53 CDT by Gonzalo Taylor
== END 2023-04-07 17:35 | disposition home or self-care (01) ==
LOC: OR 11:34
PROVIDERS: ATTEND Surgery
PROC: 0FT44ZZ Resection of Gallbladder, Percutaneous Endoscopic Approach (ICD-10-PCS; principal; 2023-04-07 13:00)
DX: K80.10 Calculus of gallbladder with chronic cholecystitis without obstruction (principal); R10.11 Right upper quadrant pain
CPT/HCPCS: 93005; 36415; 82947; 80076; 88304; 83690; 47562; J2704; J1100; J2765; J2001; J2250; J3010; J1170; J0694; J2405; J7030; J2710